=== PATIENT | female | born 1965 | race Two or more races ===

== ENCOUNTER 2024-10-18 10:28 | Emergency (ER) | payer OTHER ==
[~2024-10-18] VITALS: Ht 152.4 cm; Wt 67.0 kg
[2024-10-18] MEDS: SODIUM CHLORIDE 0.9% 500 ML IV ONE (11:15)
[2024-10-18 11:16] LABS: Urine Bacteria None Seen /hpf (None Seen)
[2024-10-18 11:22] LABS: Urine Blood 2+ /uL (Negative); Urine Clarity Turbid (Clear); Urine Color Light-Yellow (Yellow); Urine Hyaline Cast FEW /lpf (0 - 2); Urine Mucus FEW (None Seen); Urine Protein, UAD 1+ (Negative); Urine Specific Gravity 1.023 (1.001-1.035); Urine Urobilinogen Normal (Negative); Urine WBC 29 /hpf (0 - 5); Urine pH 6.5 (5.0-9.0)
--- NOTE | 2024-10-18 11:33 | ED.PDOC ---
GI ASSESSMENT HPI Comments Bryan HPI: Poor Historian. 58-year-old female presents to emergency department for one day history of left flank pain radiating to her left abdomen. Pain is constant. No alleviating or precipitating factors. No associated nausea vomiting diarrhea or fever. Denies any fall or trauma or injury. This never happened before. VITALS: Temp: 98.0F RR: 16 02 sat : 99 % on room air HR: 104 BP: 191/118 PMH: hyperthyroidism PSH: hysterectomy Social history: denies tobacco use, denies ETOH use, denies drug use Medications: denies Allergies: penicillins REVIEW OF SYSTEMS: CONSTITUTIONAL: Denies acute: fever, diaphoresis, chills, generalized weakness. HEAD: Denies acute: headache, photophobia Eyes: Denies acute: Double vision, vision loss, eye pain, eye discharge. EARS: Denies acute: tinnitus, hearing loss, ear discharge, ear pain, THROAT: Denies acute: sore throat, swelling, difficulty swallowing , pain with swallowing, change in voice. NECK: Denies acute: neck pain, neck swelling, stiff neck. HEART: Denies acute : chest pain, palpitations, LUNGS: Denies acute: SOB, wheezing, cough, hemoptysis ABDOMEN: Denies acute: Nausea, Vomiting, diarrhea, melena , hematemesis, hematochezia SKIN: Denies acute: rash, redness, lesions, itchiness. EXTREMITIES: Denies acute: calf pain, numbness, tingling, weakness, denies pain in extremity. Denies acute: Low back pain. Neuro: Denies acute: focal neurological deficit, motor or sensory focal neurological deficit, tremors, seizure like activity, confusion, dizziness, change in mental status, loss of bowel or bladder function, cauda equina like symptoms. : Denies acute: dysuria, hematuria, increase in urinary frequency. PSYCH: Denies acute: hallucination, suicidal ideation, homicidal ideation. FEMALE: Denies acute: abnormal vaginal bleeding, foul odor, unusual discharge. PHYSICAL EXAM: General: Moderate acute distress, awake and alert. Head: normocephalic, atraumatic. Neck: supple, trachea is midline, no swelling. Throat: Normal phonation. Eyes:, no erythema, no purulent discharge, no proptosis, no icterus. Heart: regular rate, regular rhythm, no significant murmur appreciated. Lungs: no apparent respiratory distress, Able to speak in full sentences. No wheezing, no rhonchi, no crackles. No stridors Clear to auscultation bilaterally. Abdomen: Left-sided abdomen tender to palpation, non distended, soft, no guarding, no rebound, + bowel sounds. Neuro: Awake, Alert, oriented to name, self, situation, follows commands GCS=15. Speech is normal. Skin: no petechia, no purpura, no cyanosis, non-pale, not jaundice. Lower extremities: --no - Pitting edema no deformity, no focal swelling, no calf TTP. Makes eye contact. moves all four extremities. Face: no apparent facial droop. No CVA tenderness to percussion on the left in the area of complaint. Chief Complaint: Flank Pain Time Seen by MD: 10:39 Reviewed Notes: Nurses Notes, Medications, Allergies Allergies: Coded Allergies: NO KNOWN ALLERGIES (Unverified , 10/18/24) Information Source: Patient Mode of Arrival: Wheelchair Past Medical History PAST MEDICAL HISTORY: Thyroid Surgical History: Denies all surgeries Social History Smoker: Non-Smoker Alcohol: Denies ETOH Use Drugs: Denies Drug Use Lives In: Home Was a procedure done? Was a procedure done?: No X-Ray, Labs, Meds, VS Vital Signs Date Time Temp Pulse Resp B/P (MAP) Pulse Ox O2 Delivery O2 Flow Rate FiO2 10/18/24 12:37 93 18 181/103 10/18/24 11:47 98.0 98 20 188/108 (134) 98 98.0 10/18/24 11:47 188/108 10/18/24 11:34 86 19 96 Room Air* 0 21 10/18/24 11:12 98.0 104 16 191/118 (142) 99 Lab Test 10/18/24 11:40 10/18/24 11:08 Range/Units White Blood Count 8.9 4.4-10.8 10^3/uL Red Blood Count 3.71 L 4.0-5.20 10^6/uL Hemoglobin 12.1 L 12.2-16.2 g/dL Hematocrit 36.0 36.0-46.0 % Mean Corpuscular Volume 97.1 80.0-100.0 fL Mean Corpuscular Hemoglobin 32.7 H 28.0-32.0 pg Mean Corpuscular Hemoglobin Concent 33.7 32.0-36.0 g/dL Red Cell Distribution Width 14.9 H 11.8-14.3 % Platelet Count 335 140-450 10^3/uL Mean Platelet Volume 6.6 L 6.9-10.8 fL Neutrophils (%) (Auto) 88.0 H 37.0-80.0 % Lymphocytes (%) (Auto) 8.2 L 10.0-50.0 % Monocytes (%) (Auto) 3.5 0.0-12.0 % Eosinophils (%) (Auto) 0.0 0.0-7.0 % Basophils (%) (Auto) 0.3 0.0-2.0 % Neutrophils # (Auto) 7.8 1.6-8.6 10 ^3/uL Lymphocytes # (Auto) 0.7 0.4-5.4 10 ^3/uL Monocytes # (Auto) 0.3 0-1.3 10 ^3/uL Eosinophils # (Auto) 0 0-0.8 10 ^3/uL Basophils # (Auto) 0 0-0.2 10 ^3/uL Nucleated Red Blood Cells 0.0 % Sodium Level 139 136-145 mmol/L Potassium Level 3.5 3.5-5.1 mmol/L Chloride Level 105 98-107 mmol/L Carbon Dioxide Level 23 20-31 mmol/L Anion Gap 11 5-15 Blood Urea Nitrogen 10 9-23 mg/dL Creatinine 1.20 H 0.550-1.02 mg/dL Glomerular Filtration Rate Calc 53 >90 mL/min BUN/Creatinine Ratio 8.3 L 10.0-20.0 Serum Glucose 116 H 74-106 mg/dL Lactic Acid Level 1.9 0.4-2.0 mmol/L Calcium Level 11.6 H 8.7-10.4 mg/dL Total Bilirubin 0.4 0.2-1.0 mg/dL Aspartate Amino Transferase (AST) 15 13-40 U/L Alanine Aminotransferase (ALT) 10 7-40 U/L Alkaline Phosphatase 231 H 46-116 U/L Troponin I High Sensitivity < 3 L </=34 ng/L Total Protein 8.3 H 5.7-8.2 g/dL Albumin 4.8 3.2-4.8 g/dL Lipase 24 12-53 U/L Urine Color Light-yellow Yellow Urine Clarity Turbid H Clear Urine pH 6.5 5.0-9.0 Urine Specific [place] 1.023 1.001-1.035 Urine Protein 1+ H Negative Urine Ketones 1+ H Negative Urine Blood 2+ H Negative /uL Urine Nitrite Negative Negative Urine Bilirubin Negative Negative Urine Urobilinogen Normal Negative mg/dL Urine Leukocyte Esterase 3+ Negative /uL Urine RBC 100 0 - 4 /hpf Urine WBC 29 0 - 5 /hpf Urine Squamous Epithelial Cells Mod <5 /hpf Urine Bacteria None seen None Seen /hpf Urine Hyaline Casts Few 0 - 2 /lpf Urine Mucus Few None Seen Urine Glucose Normal Normal mg/dL Current Medications Medications (Trade) Dose Ordered Sig/Jacqui Route Start Time Stop Time Status Last Admin Sodium Chloride 500 ml @ 500 mls/hr Q1H ONCE IV 10/18/24 11:15 10/18/24 12:14 DC 10/18/24 11:15 Fentanyl Citrate 100 mcg ONCE ONCE IV 10/18/24 11:15 10/18/24 11:16 DC 10/18/24 11:47 Morphine Sulfate 2 mg ONCE ONCE IV 10/18/24 12:30 10/18/24 12:31 DC 10/18/24 12:37 [place] [id number] Ph: [phone] DIAGNOSTIC IMAGING Diagnostic Imaging Report : [id number] Signed PATIENT: JOHN OLVERA ACCT: [id number] UNIT: [id number] : 1965 LOC: ER ROOM / BED: / AGE / SEX: 58 / F ADM STATUS: REG ER SERVICE 1111 ORDERING PHYSICIAN: REJI STOKES DO PROCEDURE(s): CXRP - CHEST PORTABLE REASON: L flank pain, LLQ pain ORDER NUMBER(s): [id number], ACCESSION NUMBER(s): [id number] EXAM: XR Chest, 1 View CLINICAL INDICATION: L flank pain, LLQ pain TECHNIQUE: Frontal view of the chest. COMPARISON: None FINDINGS: LUNGS AND PLEURAL SPACES: Unremarkable. No consolidation. No pneumothorax. HEART: Unremarkable. No cardiomegaly. MEDIASTINUM: Unremarkable. Normal mediastinal contour. BONES/JOINTS: Unremarkable. No acute fracture. OTHER FINDINGS: . . . IMPRESSION: No acute cardiopulmonary process. ATED BY: IHSAN PAYNE MD DICTATED DATE/TIME: 10/18/241132 SIGNED BY: IHSAN PAYNE MD SIGNED DATE/TIME: 10/18/241132 CC: [place] [id number] Ph: [phone] DIAGNOSTIC IMAGING Diagnostic Imaging Report : [id number] Signed PATIENT: JOHN OLVERA ACCT: [id number] UNIT: [id number] : 1965 LOC: ER ROOM / BED: / AGE / SEX: 58 / F ADM STATUS: REG ER SERVICE 1111 ORDERING PHYSICIAN: REJI STOKES DO PROCEDURE(s): ABPL - CT AB PEL WO CON-NO ORAL OR IV REASON: L flank pain, LLQ pain ORDER NUMBER(s): [id number], ACCESSION NUMBER(s): [id number] Exam: CT CT AB PEL WO CON-NO ORAL OR IV History: L flank pain, LLQ pain Comparison Study: None Technique: Multidetector spiral CT of the abdomen was performed from lung bases to pubic symphysis. Imaging was performed without IV contrast. Axial, coronal and sagittal multiplanar reformats were obtained from the axial data set by the technologist. Radiation Dose : 1. Abdomen/Pelvis: CTDIvol 10.0 mGy, DLP 437.0 mGy*cm. Findings: Evaluation of solid organs is limited due to lack of intravenous contrast use. Lung Bases: No acute or significant lung base finding. Normal heart size. No pleural or pericardial effusion. Liver: There is a 3.1 x 2.6 x 1.6 cm circumscribed hypodense lesion at the dome of the right hepatic lobe which attenuates at 40 Hounsfield units. Gallbladder and Biliary Tree: Unremarkable Spleen: Unremarkable Pancreas: The pancreas is grossly normal in appearance. Adrenal Glands: Unremarkable Kidneys: There is a 6 x 4 x 8 mm calculus at the right renal pelvis. No evidence of associated pelvocaliceal dilatation on the right. There are a couple of punctate nonobstructing calculi in the left kidney. There is mild left hydroureteronephrosis secondary to an obstructing round 2 x 2 mm calculus at the left ureterovesical junction. Mild left perinephric / periureteral fat stranding is likely secondary to obstruction. Bladder: Urinary bladder is decompressed. Bowel: The stomach is grossly normal in appearance. Small bowel and colon are normal in caliber and distribution. Normal appendix is visualized in the right lower quadrant without findings of appendicitis. Ascites: Absent Lymphadenopathy: No mesenteric, retroperitoneal or periportal lymphadenopathy. Abdominal Wall and Mesentery: Unremarkable. Vasculature: The visualized abdominal aorta is normal in size and caliber. Evaluation of abdominal and pelvic vessels is limited due to lack of intravenous contrast. Pelvic Organs: Unremarkable Musculoskeletal: No aggressive focal bony lesions, acute fractures or dis location. Mild dextrocurvature in the thoracolumbar spine. Intraosseous hemangioma in the T12 vertebral body. IMPRESSION: 1. Obstructing 2 x 2 mm calculus at the left ureterovesical junction. Mild associated left hydroureteronephrosis. 2. Additional nonobstructing bilateral renal calculi, the largest measuring up to 8 mm on the right. 3. There is a 3.1 x 2.6 cm hypodensity at the right hepatic dome. Finding could represent a hemangioma although a solid lesion is not excluded. Recommend correlation with right upper quadrant ultrasound. Radiation optimization: All CT scans at this facility use at least one of these dose optimization techniques: automated exposure control mA and/or kV adjustment per patient size (includes targeted exams where dose is matched to clinical indication) or iterative reconstruction. ATED BY: TUYET ABREU DO DICTATED DATE/TIME: 10/18/24 1154 SIGNED BY: TUYET ABREU DO SIGNED DATE/TIME: 10/18/24 1154 CC: Time of 1ST Reevaluation: 13:28 (Admit The case was discussed with the admitting team (HPI, physical exam, labs and diagnostic tests that were available at the time of disposition, ED course, treatment plan) on the phone. They agreed to transfer the patient to their facility for further evaluation and treatment. By ALS. Dr. fabian authorization #[id number]. ) Patient Education/Counseling: Diagnosis, Treatment Family Education/Counseling: No Family Present Additional Information Patient presented with the above HPI.-flank pain -workup was initiated. patient was found with the above mentioned diagnosis. the following medications were ordered: tamsulosin, Toradol, morphine, fentanyl, IV fluids the following tests were ordered: EKG x 1, troponin x 3, CT abdomen and pelvis without contrast, chest x-ray, lactic acid, lipase, UA, CMP, CBC, Patient ED course and VS have been stabilized. Patient has been reassessed in the ED and remained in a stable condition. Patient has been observed in the ED adequate length of time to insure improvement/stability. Escalation of care considered: Consideration of escalation to observation or admission. patient was admitted to the medicine team for further evaluation and treatment of their presentation. patient was DISCHARGED after further evaluation and treatment of their presentation. All the reports of any imaging studies that were ordered by myself were reviewed by myself. Departure 1 Departure Time of Disposition: 13:14 Impression: Primary Impression: Renal colic on left side Additional Impressions: Kidney stone Hydronephrosis with renal and ureteral calculous obstruction Disposition: ADMITTED INPATIENT Admit to: Tele Condition: Guarded Discharged With: Self I personally scribed for REJI STOKES DO ([email or web address]) on 10/18/24 at 11:33. Electronically submitted by Priec Cintron ([email or web address]). I personally scribed for REJI STOKES DO ([email or web address]) on 10/18/24 at 13:22. Electronically submitted by Price Cintron ([email or web address]). I personally scribed for REJI STOKES DO ([email or web address]) on 10/18/24 at 13:32. Electronically submitted by Price VALVERDE). REJI STOKES DO Oct 18, 2024 11:33
[2024-10-18 11:34] VITALS: PULSE 86; RESP 19; O2SAT 96
[2024-10-18] MEDS: fentaNYL CITRATE 100 MCG/2 ML VL IV ONE ×2 (11:47→18:05)
[2024-10-18 11:52] LABS: Basophils # (auto) 0 10 ^3/uL (0-0.2); Basophils % (auto) 0.3 % (0.0-2.0); Eosinophils # (auto) 0 10 ^3/uL (0-0.8); Hemoglobin 12.1 g/dL (12.2-16.2); Lymphocytes # (auto) 0.7 10 ^3/uL (0.4-5.4); Lymphocytes % (auto) 8.2 % (10.0-50.0); Mean Corpuscular Hemoglobin 32.7 pg (28.0-32.0); Mean Corpuscular Hgb Conc. 33.7 g/dL (32.0-36.0); Mean Corpuscular Volume 97.1 fL (80.0-100.0); Monocytes # (auto) 0.3 10 ^3/uL (0-1.3); Monocytes % (auto) 3.5 % (0.0-12.0); Neutrophils # (auto) 7.8 10 ^3/uL (1.6-8.6); Platelet Count (auto) 335 10^3/uL (140-450); Red Blood Cells 3.71 10^6/uL (4.0-5.20); Red Cell Distribution Width 14.9 % (11.8-14.3); White Blood Cell 8.9 10^3/uL (4.4-10.8)
--- NOTE | 2024-10-18 11:57 | DVH ---
Exam: CT CT AB PEL WO CON-NO ORAL OR IV History: L flank pain, LLQ pain Comparison Study: None Technique: Multidetector spiral CT of the abdomen was performed from lung bases to pubic symphysis. Imaging was performed without IV contrast. Axial, coronal and sagittal multiplanar reformats were ob tained from the axial data set by the technologist. Radiation Dose : 1. Abdomen/Pelvis: CTDIvol 10.0 mGy, DLP 437.0 mGy*cm. Findings: Evaluation of solid organs is limited due to lack of intravenous contrast use. Lung Bases: No acute or significant lung base finding. Normal heart size. No pleural or pericardial effusion. Liver: There is a 3.1 x 2.6 x 1.6 cm circumscribed hypodense lesion at the dome of the right hepatic lobe which attenuates at 40 Hounsfield units. Gallbladder and Biliary Tree: Unremarkable Spleen: Unremarkable Pancreas: The pancreas is grossly normal in appearance. Adrenal Glands: Unremarkable Kidneys: There is a 6 x 4 x 8 mm calculus at the right renal pelvis. No evidence of associated pelvoc aliceal dilatation on the right. There are a couple of punctate nonobstructing calculi in the left ki dney. There is mild left hydroureteronephrosis secondary to an obstructing round 2 x 2 mm calculus at the left ureterovesical junction. Mild left perinephric / periureteral fat stranding is likely secon josesito to obstruction. Bladder: Urinary bladder is decompressed. Bowel: The stomach is grossly normal in appearance. Small bowel and colon are normal in caliber and d istribution. Normal appendix is visualized in the right lower quadrant without findings of appendici tis. Ascites: Absent Lymphadenopathy: No mesenteric, retroperitoneal or periportal lymphadenopathy. Abdominal Wall and Mesentery: Unremarkable. Vasculature: The visualized abdominal aorta is normal in size and caliber. Evaluation of abdominal a nd pelvic vessels is limited due to lack of intravenous contrast. Pelvic Organs: Unremarkable Musculoskeletal: No aggressive focal bony lesions, acute fractures or dislocation. Mild dextrocurvatu re in the thoracolumbar spine. Intraosseous hemangioma in the T12 vertebral body. IMPRESSION: 1. Obstructing 2 x 2 mm calculus at the left ureterovesical junction. Mild associated left hydrouret eronephrosis. 2. Additional nonobstructing bilateral renal calculi, the largest measuring up to 8 mm on the right. 3. There is a 3.1 x 2.6 cm hypodensity at the right hepatic dome. Finding could represent a hemangiom a although a solid lesion is not excluded. Recommend correlation with right upper quadrant ultrasoun d. Radiation optimization: All CT scans at this facility use at least one of these dose optimization sean hniques: automated exposure control mA and/or kV adjustment per patient size (includes targeted exam s where dose is matched to clinical indication) or iterative reconstruction.
[2024-10-18 12:07] LABS: Alanine Aminotransferase 10 U/L (7-40); Anion Gap 11 (5-15); Aspartate Aminotransferase 15 U/L (13-40); BUN/Creatinine Ratio 8.3 (10.0-20.0); Bilirubin, Total 0.4 mg/dL (0.2-1.0); Blood Urea Nitrogen 10 mg/dL (9-23); Carbon Dioxide 23 mmol/L (20-31); Chloride 105 mmol/L (98-107); Potassium 3.5 mmol/L (3.5-5.1); Sodium 139 mmol/L (136-145)
[2024-10-18 12:08] LABS: Albumin 4.8 g/dL (3.2-4.8); Alkaline Phosphatase 231 U/L (46-116); Calcium 11.6 mg/dL (8.7-10.4); Glucose 116 mg/dL (74-106); Total Protein 8.3 g/dL (5.7-8.2)
[2024-10-18 12:20] LABS: Lipase 24 U/L (12-53)
[2024-10-18] MEDS: MORPHINE SULFATE INJ 2 MG/ml SYRG IV ONE (12:37)
[2024-10-18] MEDS: KETOROLAC TROMETH 30 MG/ML 1ML VIAL IV ONE ×2 (13:45→13:51)
[2024-10-18] MEDS: cefTRIAXone 1GM/50ML D5W 50 ML IV ONE (13:45)
[2024-10-18] MEDS: TAMSULOSIN HYDROCHLORIDE 0.4 MG CAP PO ONE (13:45)
[2024-10-18 17:54] VITALS: PULSE 101; RESP 16; TEMP 98.4; O2SAT 100
[2024-10-18 18:05] VITALS: BP 161/106
[2024-10-18] MEDS: hydrALAZINE HCL 20 MG/ML VL IV ONE (18:06)
== END 2024-10-18 13:17 | disposition short-term general hospital (02) ==
LOC: ER 10:28
DX: N13.2 Hydronephrosis with renal and ureteral calculous obstruction (principal); Z88.0 Allergy status to penicillin; Z90.710 Acquired absence of both cervix and uterus
CPT/HCPCS: 36415; 71045; 74176; 80053; 81001; 83605; 83690; 84484; 85025; 96361; 96365; 96366; 96375; 96376; 99285; J0360; J0696; J1885; J2270; J3010; J7040